=== PATIENT | female | born 1970 | race African-American/Black ===

== ENCOUNTER 2021-03-01 10:38 | Emergency (ER) | payer OTHER ==
[2021-03-01 10:59] VITALS: TEMP 98.2; BMI 31.9
[2021-03-01] MEDS ORDERED: FAMOTIDINE 20 MG/50 ML IVPB 20 MG/50 ML MG IVPB ONE ×2 (12:00→12:13)
[2021-03-01] MEDS ORDERED: diphenhydrAMINE HCL 25 MG CAPSULE (FP) PO ONE ×2 (16:25→16:41)
[2021-03-01 18:10] VITALS: BP 131/86; PULSE 94
== END 2021-03-01 18:21 | disposition home or self-care (01) ==
LOC: JER 10:38
PROC: 3E033GC Introduction of Other Therapeutic Substance into Peripheral Vein, Percutaneous Approach (ICD-10-PCS; principal; 2021-03-01)
DX: T78.3XXA Angioneurotic edema, initial encounter (principal)
CPT/HCPCS: 99284-25